=== PATIENT | male | born 2000 | race Caucasian/White ===

== ENCOUNTER 2023-04-07 08:48 | Emergency (ER) | payer SELFPAY ==
[~2023-04-07] VITALS: Ht 172.7 cm; Wt 70.0 kg
[2023-04-07 08:59] VITALS: BP 119/84; PULSE 95; RESP 16; TEMP 98.7; O2SAT 97
[2023-04-07] MEDS ORDERED: AMOX-494 MT (09:16)
[2023-04-07] MEDS ORDERED: IBUP-2029 MT (09:17)
== END 2023-04-07 11:06 | disposition home or self-care (01) ==
LOC: EDBD 09:15 → ER 09:15
DX: K04.7 Periapical abscess without sinus (principal)
CPT/HCPCS: 99281; 99283